=== PATIENT | male | born 1960 | race Caucasian/White ===

== ENCOUNTER 2018-05-16 11:05 | Emergency (ER) | payer SELFPAY ==
[2018-05-16 11:42] VITALS: BP 118/53
--- NOTE | 2018-05-16 12:08 | ED ---
Lower Extremity - HPI Summary HPI Summary: 58 yr old male with the complaint of right posterior thigh pain. onset of symptoms yesterday. She slipped walking down embankment and hyperextended leg, and pulled the right hamstring muscles. He took motrin and flexeril and states not helping. Pain is in the mid hamstring compartment. he has appointments for next week in [place] for this already. - History of Current Complaint Chief Complaint: UCLowerExtremity Stated Complaint: RIGHT LEG COMPLAINT Time Seen by Provider: 05/16/18 11:47 Pain Intensity: 8 - Allergies/Home Medications Allergies/Adverse Reactions: Allergies Allergy/AdvReac Type Severity Reaction Status Date / Time tramadol Allergy Rash Verified 05/16/18 11:34 Home Medications: Home Medications Ibuprofen TAB* [Motrin TAB* 800 MG] 800 mg PO Q8H PRN 05/16/18 [History Confirmed 05/16/18] Methocarbamol TAB* [Robaxin 500 MG TAB*] 750 mg PO QID PRN 05/16/18 [History Confirmed 05/16/18] PMH/Surg Hx/FS Hx/Imm Hx - Surgical History Surgery Procedure, Year, and Place: Appendectomy, ~1968[place], [place] Infectious Disease History: No Infectious Disease History: Denies: Traveled Outside the [place] in Last 30 Days - Family History Known Family History: Positive: None - Social History Alcohol Use: Occasionally Substance Use Type: Reports: Prescribed Smoking Status (MU): Former Smoker Length of Time of Smoking/Using Tobacco: < 1 PPD x 25+ Years Review of Systems Constitutional: Negative Positive: Other - right hamstring pain All Other Systems Reviewed And Are Negative: Yes Physical Exam Triage Information Reviewed: Yes Vital Signs On Initial Exam: Initial Vitals Temp Pulse Resp BP Pulse Ox 98.5 F 72 18 118/53 98 05/16/18 11:32 05/16/18 11:32 05/16/18 11:32 05/16/18 11:32 05/16/18 11:32 Vital Signs Reviewed: Yes Appearance: Positive: Well-Appearing Skin: Positive: Warm, Skin Color Reflects Adequate Perfusion, Other - no bruise right posterior thigh Head/Face: Positive: Normal Head/Face Inspection Eyes: Positive: EOMI ENT: Positive: Normal ENT inspection Neck: Positive: Nontender Respiratory/Lung Sounds: Positive: Clear to Auscultation, Breath Sounds Present Cardiovascular: Positive: RRR. Negative: Murmur Musculoskeletal: Positive: Other - tender to palpate over the right posterior thigh, hamstring compartment. No bruise, no STS. No tenderness on the pelvis, femur or knee. Neurological: Positive: Sensory/Motor Intact - limited due to pain in posterior right thigh., Alert, Oriented to Person Place, Time, CN Intact II-III Psychiatric: Positive: Normal Diagnostics - Vital Signs Vital Signs Temp Pulse Resp BP Pulse Ox 05/16/18 11:32 98.5 F 72 18 118/53 98 - Laboratory Lab Statement: Any lab studies that have been ordered have been reviewed, and results considered in the medical decision making process. Lower Extremity Course/Dx - Course Course Of Treatment: 58 yr old with probably ham string tear. he is going to the ER for further evaluation. - Diagnoses Provider Diagnoses: Tear of right hamstring Discharge - Sign-Out/Discharge Documenting (check all that apply): Patient Departure All imaging exams completed and their final reports reviewed: No Studies - Discharge Plan Condition: Good Disposition: HOME-RECOMMEND TO ED Patient Education Materials: Hamstring Injury (ED) Referrals: Ellie SILVER,Sharri Edward [Primary Care Provider] - Additional Instructions: you should go to the ER for further work up of the extent of your thigh injury with possible MRI. - Billing Disposition and Condition Condition: GOOD Disposition: Home-Recommend to ED
== END 2018-05-16 12:04 | disposition home health service (06) ==
LOC: UCCORT 11:05
DX: S76.811A Strain of other specified muscles, fascia and tendons at thigh level, right thigh, initial encounter (principal); X50.0XXA Overexertion from strenuous movement or load, initial encounter; Y93.01 Activity, walking, marching and hiking; Y92.9 Unspecified place or not applicable; Z87.891 Personal history of nicotine dependence
CPT/HCPCS: 99202; G0463